=== PATIENT | male | born 1995 | race Caucasian/White ===

== ENCOUNTER 2019-02-06 15:04 | Outpatient (CLI) | payer OTHER ==
--- NOTE | 2019-02-06 17:28 | ULT ---
TESTICULAR ULTRASOUND: DATE: 02/06/2019. HISTORY: Mass in the left testicle. The mass has since resolved. Followup evaluation. COMPARISON: None available. FINDINGS: The testicles demonstrate a normal sonographic appearance bilaterally without evidence of a testicula r mass. The right testicle measures 4.3 cm x 2.7 cm x 3.1 cm with the left testicle measuring 3.7 cm x 2.6 cm x 3 cm. Doppler evaluation of each testicle with spectral analysis and color flow evaluati on demonstrates arterial and venous flow in each testicle. The epididymes are normal and symmetric in size and appearance. There is a small amount of fluid seen adjacent to the left testicle which may be physiologic. IMPRESSION: Normal-appearing bilateral testicles without evidence of a testicular mass. Arterial flow is documen shaun in each testicle. POS: [facility]
== END 2019-02-06 15:05 | disposition home or self-care (01) ==
LOC: SCSULT 15:04
PROVIDERS: ATTEND Family Medicine
DX: N50.9 Disorder of male genital organs, unspecified (principal)
CPT/HCPCS: 76870